=== PATIENT | male | born 1960 | race Caucasian/White ===

== ENCOUNTER 2023-01-30 10:13 | Day surgery (SDC) | payer OTHER, SELFPAY ==
[2023-01-30] VITALS (8 sets, daily range): BP systolic 138–160; BP diastolic 79–98; PULSE 89–112; RESP 12–22; TEMP 36.4–36.6; O2SAT 95–98; BMI 28.3
--- NOTE | ~2023-01-30 | XR_ITS ---
Examination: Chest and soft tissue neck. CLINICAL INDICATION: Evaluate for foreign body. TECHNIQUE: Soft tissue neck 2 views. Chest 2 views. COMPARISON: None. FINDINGS: CHEST: The lungs are well-expanded and clear of acute pneumonic process. The heart size and pulmonary vascularity is normal. There is moderate spondylosis lower dorsal spine. No aggressive lytic or sclerotic process seen. SOFT TISSUE NECK: There is no radiopaque foreign body seen in the neck. The airway is widely patent. The prevertebral and paravertebral soft tissues are normal. Mild loss is C3-C4, C5-C6 disc heights with ventral spondylosis is noted. XR/XR chest 2V IMPRESSION: No radiopaque foreign body seen in the soft tissue neck exam. Unremarkable chest exam with no radiopaque foreign body seen.
--- NOTE | ~2023-01-30 | XR_ITS ---
Examination: Chest and soft tissue neck. CLINICAL INDICATION: Evaluate for foreign body. TECHNIQUE: Soft tissue neck 2 views. Chest 2 views. COMPARISON: None. FINDINGS: CHEST: The lungs are well-expanded and clear of acute pneumonic process. The heart size and pulmonary vascularity is normal. There is moderate spondylosis lower dorsal spine. No aggressive lytic or sclerotic process seen. SOFT TISSUE NECK: There is no radiopaque foreign body seen in the neck. The airway is widely patent. The prevertebral and paravertebral soft tissues are normal. Mild loss is C3-C4, C5-C6 disc heights with ventral spondylosis is noted. XR/XR soft tissue neck IMPRESSION: No radiopaque foreign body seen in the soft tissue neck exam. Unremarkable chest exam with no radiopaque foreign body seen.
[2023-01-30 11:03] LABS: Hematocrit 49.5 % (42.0-52.0); Hemoglobin 17.8 g/dl (14.0-18.0); Mean Corpuscular Hemoglobin 29.9 pg (27.0-33.0); Mean Corpuscular Volume 83.1 fL (80.0-98.0); Mean Platelet Volume 9.8 fL (9.4-12.4); Platelet Count 251 X10*3/uL (160-400); Red Blood Count 5.96 X10*6/uL (4.60-5.80); White Blood Count 6.8 X10*3/uL (4.8-10.8)
[2023-01-30 11:24] LABS: Anion Gap 15 (12-20); Blood Urea Nitrogen 15 mg/dL (9-16); Calcium 9.9 mg/dL (8.4-10.2); Carbon Dioxide 21 mmol/L (22-29); Chloride 106 mmol/L (96-108); Creatinine Clr Calc Pharmacy 91.2; Estimated Glomerular Filt Rate > 60; Glucose Random 115 mg/dL (60-115); Potassium 3.9 mmol/L (3.3-5.1); Sodium 138 mmol/L (135-145)
[2023-01-30 11:41] LABS: TSH reflex Free T4 0.47 uIU/mL (0.32-4.0)
[2023-01-30] MEDS: 0.9 % Sodium Chloride 1,000 ML 999 ML IV (14:46)
--- OUTSIDE RECORDS SUMMARY | 2023-01-30 14:46 | XMS_ITS | Continuity of Care Document ---
Author Name Unknown Organization [facility] [place] Address [address] [place] [id number]- Care Team Providers Care Weighing Station Operator Name Role Phone Trinity SPRAGUE, Jon Zuniga Primary Care Physician [phone] Encounter [facility] Date(s): 10/11/21 - 11/10/21 [facility] Adult [address] [place] [address]- Allergies, Adverse Reactions, Alerts No Known Allergies Immunizations Given and Recorded Vaccine Date Status Refusal Reason influenza virus vaccine, inactivated 07/14/20 Give n Social History Social History Type Response Smoking Status Never (less than 100 in lifetime) entered on: 02/11/19 Sex
--- OUTSIDE RECORDS SUMMARY | 2023-01-30 14:46 | XMS_ITS | Continuity of Care Document ---
Author Name Unknown Organization [facility] Address [address] [place] [address]- Care Team Providers Care Ticket Broker Name Role Phone Trinity SPRAGUE, Jon Zuniga Primary Care Physician [phone] En[place] [facility] [place](s): 03/12/20 - 04/11/20 [facility] Adult [address] [place] [address]- [facility] Allergies, Adverse Reactions, Alerts Substance Reaction Severity Status NKA Active Medications naproxen sodium 550 mg oral tablet 1 tablet = 550 mg, By Mouth, 2 times a day, PRN for pain, # 20 tablet, 1 Refills, Acute 05/13/20 16:45:00 EDT, 03/12/20 16:34:00 EDT, Tablet, [id number], 154.9, cm, 03/12/20 14:11:00 EDT, Height Start Date: 03/12/20 Stop Date: 05/13/20 Status: Ordered Social History Social History Type Response Smoking Status Never (less than 100 in lifetime) entered on: 02/11/19 Sex
--- OUTSIDE RECORDS SUMMARY | 2023-01-30 14:46 | XMS_ITS | Continuity of Care Document ---
Author Name Unknown Organization [facility] Address [address] [place] [address]- Care Team Providers Care Energy Specialist Name Role Phone Jon Petersen MD Primary Care Physician Encounter [place] Date(s): 11/19/19 - 03/18/20 [facility] Adult [address] [place] [address]- [facility] Attending Physician: Jon Petersen MD Allergies, Adverse Reactions, Alerts Substance Reaction Severity [...]
--- OUTSIDE RECORDS SUMMARY | 2023-01-30 14:46 | XMS_ITS | Continuity of Care Document ---
Author Name Unknown Organization [facility] [place] Address [address] [place] [address]- Care Team Providers Care Middle School Band Teacher Name Role Phone Jon Petersen MD Primary Care Physician En[place] [facility] [place] Date[place] 03/12/20 - 03/19/20 [facility] Adult [address] [place] [address]- [facility] Attending Physician: Jon Petersen MD Allergies, Adverse [...] Date: 03/12/20 Stop Date: 05/13/20 Status: Ordered Vital Signs Most recent to oldest [Reference Range]: 1 Height 154.90 cm (03/12/20 2:11 PM) Social History Social History Type Response Smoking Status Never (less than 100 in lifetime) entered on: 02/11/19 Sex
--- OUTSIDE RECORDS SUMMARY | 2023-01-30 14:46 | XMS_ITS | Continuity of Care Document ---
Author Name Unknown Organization [facility] [place] Address [address] [place] [address]- Care Team Providers Care Bank Clerk Name Role Phone Trinity SPRAGUE, Jon Zuniga Primary Care Physician [place] [facility] [place] Date(s): 07/14/20 - 07/21/20 [facility] Adult [address] [place] [address]- Attending Physician: Not on Staff, Attending MD Allergies, Adverse Reactions, Alerts Substance Reaction Severity Status NKA Active Immunizations Given and Recorded Vaccine Date Status Refusal Reason influenza virus vaccine, inactivated 07/14/20 Give n Social History Social History Type Response Smoking Status Never (less than 100 in lifetime) entered on: 02/11/19 Sex
--- NOTE | 2023-01-30 14:52 | ED_ITS ---
HPI - General Adult General Chief complaint: General Medical Stated complaint: fb stuck in throat diff breathing Time Seen by Provider: 01/30/23 14:24 Source: patient Mode of arrival: ambulatory Limitations: no limitations History of Present Illness HPI narrative: 62-year-old male with history of hypertension and Graves disease presents with difficulty swallowing. Patient was eating a piece of steak last night when it became impacted. Since then he has been having difficulty swallowing. Symptoms are moderate to severe in nature. Even a tsp of fluid is difficult for him to tolerate. He also is having increasing difficulties tolerating his secretions. He has no chest pain, difficulty breathing, shortness of breath. Symptoms are worsened by attempting to swallow. There is no relieving features. Patient has never had this happen before. He patient has no history of endoscopy. Patient has remote history of surgery with reported no problems with anesthesia. He has never had sedation Related Data Allergies Allergy/AdvReac Type Severity Reaction Status Date / Time No Known Allergies Allergy Unverified 05/28/20 14:42 [No Known Allergies*] PMFSH Past Medical History Medical History Graves disease HTN (hypertension) Social History Social History Advance Directives: No Advance Directives Information Provided: Yes Physical Exam ED Vital Signs: Vital Signs - 24 hr 01/30/23 10:30 Temperature 97.9 F Pulse Rate 112 H Respiratory Rate 22 H Blood Pressure 160/98 H Pulse Oximetry 98 Oxygen Delivery Method Room Air BMI result Body Mass Index 28.3 GEN: Well developed, no acute distress, alert, oriented HEENT: Normocephalic, atraumatic, normal external ears, nose appears normal, no oropharyngeal edema or exudates Eyes: Normal to appearance Neck: Supple, no lymphadenopathy Respiratory: Talks in complete sentences, no respiratory distress, clear to auscultation bilaterally Cardiovascular: Regular rate and rhythm, no murmurs rubs or gallops Abdomen: Soft, nontender, nondistended, no guarding, no rebound Back: No CVA tenderness Extremities: No clubbing cyanosis or edema Neurologic: No focal neurologic deficits, cranial nerves 2-12 intact, strength is 5/5 bilaterally Skin: No rash Course Course Course Narrative: 62-year-old male presents with esophageal full bolus impaction. Airway is intac t. He is able to talk in complete sentences. He is not tolerating his secretions well. Will attempt glucagon and nitroglycerin. Will provide patient with IV fluids. Will contact Gastroenterology for an upper endoscopy. Reevaluation(s) Reevaluation #1: Patient received glucagon without improvement in symptoms. Time: 14:54 Consultations Consultation #1: Dr. Vail will arrange for upper endoscopy Time: 14:54 Medications Administered Generic Name Dose Route Start Last Admin Trade Name Freq PRN Reason Stop Dose Admin Sodium Chloride 1,000 mls @ 999 mls/hr 01/30/23 14:45 01/30/23 14:46 Ns IV 01/30/23 15:45 999 mls/hr .Q1H1M JYOTI Administration Medical Decision Making Medical Decision Making MDM Narrative: Patient presents with food impaction. Patient's airways intact. Will attempt IV fluids, glucagon and/or nitroglycerin sublingually. Differential diagnosis could include food bolus, stricture, Schatzki's ring, esophagitis. Will contact Gastroenterology Differential Diagnosis Differential Diagnoses: The differential diagnosis associated with the presentation includes (See above) Admission/Observation Consideration of admission/observation: Escalation of care including admission/observation considered Consult Healthcare Provider Management of the patient was discussed with: Fast Food Shift Lead (Dr. Vail, GI) Lab Data [facility] Lab Attestation statement: I reviewed the patient's lab results. 01/30/23 10:39 01/30/23 10:39 Labs: Lab Results 01/30/23 01/30/23 Range/Units 10:39 10:39 WBC 6.8 (4.8-10.8) X10*3/uL RBC 5.96 H (4.60-5.80) X10*6/uL Hgb 17.8 (14.0-18.0) g/dl Hct 49.5 (42.0-52.0) % MCV 83.1 (80.0-98.0) fL MCH 29.9 (27.0-33.0) pg MCHC 36.0 (31.0-36.0) g/dl RDW 12.0 (11.0-16.0) % Plt Count 251 (160-400) X10*3/uL MPV 9.8 (9.4-12.4) fL Absolute Nucleated RBC 0.000 (0.0-0.012) X10*3/uL Nucleated RBC % (auto) 0.0 (0.0-0.2) /100WBC Sodium 138 (135-145) mmol/L Potassium 3.9 (3.3-5.1) mmol/L Chloride 106 (96-108) mmol/L Carbon Dioxide 21 L (22-29) mmol/L Anion Gap 15 (12-20) BUN 15 (9-16) mg/dL Creatinine 0.92 (0.5-1.4) mg/dL Estim Creat Clear Calc 91.2 Estimated GFR > 60 Random Glucose 115 (60-115) mg/dL Calcium 9.9 (8.4-10.2) mg/dL TSH 0.47 (0.32-4.0) uIU/mL Independent Interpretation I performed an independent interpretation of an: Plain X-Ray (Chest, a soft tissue neck, no foreign bodies visualized) Independent Historian Clinical information obtained from an independent historian. History obtained from or confirmed by: Spouse Prescription Management I considered prescription management with: Other (Nitroglycerin, glucagon) Chronic Conditions Patient?s care impacted by: Hypertension Discharge Plan Discharge Clinical Impression: Esophageal obstruction due to food impaction Patient Disposition: Still a Patient Instructions: Esophageal Foreign Body (ED), Food Impaction (ED), Upper Endoscopy (DC) Referrals: Abraham Vail [Physician] -
[2023-01-30] MEDS: Nitroglycerin 0.4 MG TAB.SUBL SUBLINGUAL (15:02)
--- NOTE | 2023-01-30 16:17 | MHC.SHP ---
Pre-Procedural Eval Section A Date of Service: 01/30/23 The patient is an INPATIENT: No Changes since office visit: No Cold of Flu in the past 2 weeks, No New Medical Problems, No Changes in Medication and No Patient answered all questions The History & Physical has been completed within 30 days and I have reviewed it.: Yes Section B Chief Complaint: fb stuck in throat diff breathing Allergies: Allergies Allergy/AdvReac Type Severity Reaction Status Date / Time No Known Allergies Allergy Unverified 05/28/20 14:42 [No Known Allergies*] Plan I have reviewed the history and physical and performed a pertinent physical examination on my patient. No changes have occurred unless specified. Time Spent With Patient Time: Total time managing care of this patient today ____ minutes.
--- NOTE | 2023-01-30 17:58 | HO.ANESPROP2 ---
[facility] Active Problems Active Problems: All Active Problems (Updated 01/30/23 @ 14:57 by Alfonso Torres MD) Esophageal obstruction due to food impaction (Acute) Past Medical History Medical History Graves disease HTN (hypertension) Family History Family history of problems with anesthesia: No Surgical History History of Problems with Anesthesia: No Social History Social History Patient Tobacco Use Status: Never used Tobacco Use of substances other than those prescribed or required for medical reasons: No Are you DNR?: No Advance Directives: No Advance Directives Information Provided: Yes Meds Allergies Allergy/AdvReac Type Severity Reaction Status Date / Time No Known Allergies Allergy Unverified 05/28/20 14:42 [No Known Allergies*] Exam Exam Date and Time: January 30, 2023 1758 Height,Weight and Vital Signs: Height 5 ft 10 in Weight 89.358 kg Last Vital Signs Temp 97.9 F 01/30/23 10:30 Pulse 91 01/30/23 15:03 Resp 14 01/30/23 15:03 BP 138/79 01/30/23 15:03 Pulse Ox 98 01/30/23 10:30 O2 Del Method Room Air 01/30/23 10:30 Pertinent Lab Results Pertinent Lab Results: Laboratory Tests 01/30/23 01/30/23 10:39 10:39 WBC 6.8 RBC 5.96 H Hgb 17.8 Hct 49.5 MCV 83.1 MCH 29.9 MCHC 36.0 RDW 12.0 Plt Count 251 MPV 9.8 Absolute Nucleated RBC 0.000 Nucleated RBC % (auto) 0.0 Sodium 138 Potassium 3.9 Chloride 106 Carbon Dioxide 21 L Anion Gap 15 BUN 15 Creatinine 0.92 Estim Creat Clear Calc 91.2 Estimated GFR > 60 Random Glucose 115 Calcium 9.9 TSH 0.47 Airway Mallampati Class: II TM Dist: >3cm Neck ROM: Full Assessment and Plan Assessment Anesthesia Assessment: Anesthesia Plan Discussed and Chart Reviewed Final Anesthetic Review Family History of Problems with Anesthesia: No History of Problems with Anesthesia: No NPO: Yes ASA Class: II and Emergency Final Preanesthetic Review: No Changes in Pt Med Stat, Meds/Allgs Chart Reviewed, Consent Obtained/Reviewed and Anes Risks/Benef Reviewed Patient Risk: Intermediate Procedure Risk: Low Anesthetic Plan Anesthetic Plan: GA Disposition: Standard PACU
--- NOTE | 2023-01-30 18:32 | PM.OP ---
Brief Operative Note Date of Service: 01/30/23 Pre-op diagnosis: fb esophagus Procedure: egd removal fb Surgeon: Abraham Vail Was an Network Project Manager used for this Procedure?: No Estimated blood loss (mL): 2 Pathology: none sent Condition: stable Disposition: PACU
--- NOTE | 2023-01-30 19:09 | PC.NURSE ---
Belongings were with patients in waiting room. Patient clothes brought to PACU
--- NOTE | 2023-01-30 20:48 | OP_ITS ---
DATE OF SERVICE: 01/30/2023 SURGEON: Abraham Vail MD INDICATIONS: Foreign body in the esophagus. PREOPERATIVE DIAGNOSIS: POSTOPERATIVE DIAGNOSIS: PROCEDURE PERFORMED: Upper endoscopy with removal of foreign body. ESTIMATED BLOOD LOSS: COMPLICATIONS: ANESTHESIA: Monitored anesthesia care. ASSISTANTS: SPECIMENS: DESCRIPTION OF PROCEDURE: History and physical was performed. The risks and benefits of the procedure were explained to the patient. Informed consent was obtained. The patient was placed in the left lateral decubitus position. The Olympus video gastroscope was introduced into the esophagus, stomach, and duodenum. Examination was performed. The scope was removed. He tolerated the procedure well was returned to recovery area in stable condition. FINDINGS: Esophagus: At the EG junction, there was a large meat impaction. This was gently pushed through into the stomach. There was associated esophagitis from the meat impaction having been there for many hours. Above the impacted piece of meat were 2 other smaller pieces of meat that were then pushed through into the stomach without difficulty. The esophagus was completely cleared of the food material at the termination of the procedure. Stomach: The stomach was normal. There was no evidence of masses, ulcers, or polyps. Duodenum: The bulb and 2nd portion were normal. IMPRESSION: Foreign body, esophagus. RECOMMENDATION: 1. Omeprazole for 8 weeks. 2. Follow up as needed. MD VIVEK Lagunas/MODL / [id number]
--- NOTE | 2023-01-31 01:49 | CONS_ITS ---
DATE OF SERVICE: 01/30/2023 REFERRING PHYSICIAN: Alfonso Torres MD REASON FOR CONSULTATION: Esophageal obstruction secondary to food bolus. HISTORY OF PRESENT ILLNESS: The patient is a pleasant 62-year-old man, who developed obstructive symptoms and inability to swallow after eating steak last night. Symptoms persisted overnight and he came to the emergency room this morning. He was evaluated with x-rays, which were unremarkable and laboratory studies, which were also unremarkable. He denies a prior history of esophageal impactions, but has had food temporarily hanging up and washed down with liquids. He denies chronic reflux symptoms and has no risk factors for esophageal cancer and there is no family history of esophageal cancer. PAST MEDICAL HISTORY: 1. Hypertension. 2. Graves disease. 3. Elevated cholesterol. CURRENT MEDICATIONS: His current medication list is reviewed in the chart. ALLERGIES: THERE ARE NONE REPORTED. FAMILY HISTORY: As above. SOCIAL HISTORY: There is no current tobacco, alcohol, or substance abuse. REVIEW OF SYSTEMS: SKIN: No pruritus. HEENT: Negative. CARDIOPULMONARY: No shortness of breath or chest pain. GASTROINTESTINAL: As above. GENITOURINARY: Negative. NEUROPSYCHIATRIC: Negative. PHYSICAL EXAMINATION: GENERAL: Shows a pleasant male, lying comfortably on a stretcher. VITAL SIGNS: Reviewed in the electronic medical record. He is somewhat tachycardic, otherwise stable. SKIN: Anicteric. HEENT: Shows no scleral icterus. NECK: Without lymphadenopathy or thyromegaly. LUNGS: Clear. HEART: Shows a regular rate and rhythm. S1, S2. No murmur. ABDOMEN: Soft without focal masses or tenderness. Bowel sounds are present. No organomegaly is noted. EXTREMITIES: Without edema. DIAGNOSTIC DATA: Laboratory data and x-ray studies are reviewed. IMPRESSION: Foreign body, esophagus. I have discussed endoscopy with the patient including risks and benefits of the procedure. He understands these and agrees to proceed. This will be arranged shortly. We briefly discussed screening colonoscopy as he is overdue. He can call the office and schedule this at his convenience. MD VIVEK Lagunas/AYAKA / [id number] MTDD
== END 2023-01-30 19:42 | disposition home or self-care (01) ==
LOC: HO.ED 14:57 → HO.SSS 15:02
PROVIDERS: Emergency Provider Emergency Medicine; PCP Nurse Practitioner Family; Visit Provider Internal Medicine Gastroenterology
PROC: 0DJ08ZZ Inspection of Upper Intestinal Tract, Via Natural or Artificial Opening Endoscopic (ICD-10-PCS; CPT 43235; principal; 2023-01-30 16:30)
DX: T18.128A Food in esophagus causing other injury, initial encounter (principal); K20.80 Other esophagitis without bleeding; R06.9 Unspecified abnormalities of breathing; X58.XXXA Exposure to other specified factors, initial encounter; Y93.89 Activity, other specified; Y92.89 Other specified places as the place of occurrence of the external cause; Y99.8 Other external cause status; I10 Essential (primary) hypertension; E05.00 Thyrotoxicosis with diffuse goiter without thyrotoxic crisis or storm
CPT/HCPCS: 43247; 36415; 70360; 71046; 80048; 84443; 85027; 96361; 96374; 99284; 99285; J1100; J2250; J2405